=== PATIENT | female | born 2000 | race African-American/Black ===

== ENCOUNTER 2021-05-12 18:32 | Emergency (ER) | payer OTHER ==
--- NOTE | 2021-05-12 19:24 | XRAY Report ---
PROCEDURE: Tib/Fib RT INDICATIONS: metal object vs daly TECHNIQUE: 2 views of the tibia and fibula were acquired. COMPARISON: None. FINDINGS: Bones: No fractures or dislocations. No suspicious bony lesions. Soft tissues: No suspicious soft tissue calcifications or masses. No radiopaque foreign body. IMPRESSION: No acute osseous abnormality. Reviewed by: Maurizio Jon MD on 05/12/2021 7:23 PM PDT Approved by: Maurizio Jon MD on 05/12/2021 7:23 PM PDT Station ID: [id number]
[2021-05-12 19:48] VITALS: BP 145/82
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
[2021-05-12] MEDS: HYDROcod/ACETAM 5/325 MG TABLET PO STA (19:57)
== END 2021-05-12 20:18 | disposition home or self-care (01) ==
LOC: ED 18:32
DX: S80.11XA Contusion of right lower leg, initial encounter (principal); W20.8XXA Other cause of strike by thrown, projected or falling object, initial encounter; Y93.89 Activity, other specified; Y99.1 Military activity
CPT/HCPCS: 73590; 99283; A9270

== ENCOUNTER 2021-08-28 13:06 | Emergency (ER) | payer OTHER ==
[2021-08-28 13:18] VITALS: BP 160/90
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
[2021-08-28 13:43] LABS: BILIRUBIN,URINE NEGATIVE (NEGATIVE); GLUCOSE, URINE (UA) NEGATIVE (NEGATIVE); KETONES,URINE (UA) NEGATIVE (NEGATIVE); LEUKOCYTE ESTERASE, URINE NEGATIVE (NEGATIVE); NITRITE,URINE NEGATIVE (NEGATIVE); OCCULT BLOOD,URINE NEGATIVE (NEGATIVE); PROTEIN,URINE NEGATIVE (NEGATIVE); UROBILINOGEN,URINE 0.2 (NORMAL) E.U./dL (NORMAL)
[2021-08-28 13:46] LABS: CLARITY,URINE CLEAR (CLEAR); HCG UR QUAL NEGATIVE
[2021-08-28] MEDS: KETOROLAC 60 MG/2 ML VIAL IM STA (13:46)
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
--- NOTE | 2021-08-28 14:32 | CT Report ---
PROCEDURE: MAXILLOFACIAL WO INDICATIONS: ecchymosis right eye; pain with movement TECHNIQUE: Noncontrast 1.5 mm thick axial images acquired from the mandible through the frontal sinuses, with co tim and sagittal reformatting. For radiation dose reduction, the following was used: automated ex posure control, adjustment of mA and/or kV according to patient size. COMPARISON: None. FINDINGS: Image quality: Excellent. Bones and teeth: Orbital samuel are intact. Sinus samuel show no fracture or deformity. Nasal bones and septum are intact. Visualized portions of the mandible demonstrate no fractures or subluxation. Zygomatic arches are intact. Pterygoid plates are intact. Visualized portions of the skull base an d auditory canals are intact. Sinuses: Paranasal sinuses are aerated, without fluid levels, mucosal thickening, or mucoceles. Mas toid air cells are aerated. Soft tissues: Soft tissue swelling of the 4 head above the right eye. No enlarged lymph nodes. No so ft tissue lacerations or debris. Vascular: Visualized vascular structures appear normal in the absence of contrast. Bony vascular fo ramina and canals are intact. IMPRESSION: No acute abnormality of the maxillofacial bones. Reviewed by: Jesus Heart on 08/28/2021 2:31 PM PST Approved by: Jesus Heart on 08/28/2021 2:31 PM PST Station ID: [id number]
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
== END 2021-08-28 15:07 | disposition home or self-care (01) ==
LOC: ED 13:06
DX: S40.011A Contusion of right shoulder, initial encounter (principal); S00.11XA Contusion of right eyelid and periocular area, initial encounter; V89.2XXA Person injured in unspecified motor-vehicle accident, traffic, initial encounter; Y93.89 Activity, other specified; Y92.410 Unspecified street and highway as the place of occurrence of the external cause
CPT/HCPCS: 81001; 81003; 81025; 87086; 96372; 99282; 99284

== ENCOUNTER 2022-07-21 13:08 | Outpatient (CLI) | payer OTHER ==
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
[2022-07-21 13:54] VITALS: BP 130/90
== END 2022-07-21 13:09 | disposition home or self-care (01) ==
LOC: SC 13:08
PROVIDERS: ATTEND Nurse Practitioner Family
DX: R06.83 Snoring (principal); G47.8 Other sleep disorders; R53.83 Other fatigue; E66.9 Obesity, unspecified; Z68.34 Body mass index [BMI] 34.0-34.9, adult
CPT/HCPCS: 99203; 99212

== ENCOUNTER 2022-08-06 19:41 | Outpatient (CLI) | payer OTHER | END 2022-08-06 19:42 | disposition home or self-care (01) | LOC: SC 19:41 | PROVIDERS: ATTEND Nurse Practitioner Family | DX: R06.83 Snoring (principal); G47.8 Other sleep disorders; R53.83 Other fatigue | CPT/HCPCS: 95810 ==

== ENCOUNTER 2023-04-13 07:08 | Outpatient (CLI) | payer OTHER ==
--- NOTE | 2023-04-13 15:31 | Ultrasound Report ---
PROCEDURE: Arterial Visceral Complete INDICATIONS: ESSENTIAL HYPERTENSION TECHNIQUE: Real time scanning was performed of both kidneys, followed by Color and pulsed Doppler in terrogation of the renal vessels. COMPARISON: None FINDINGS: Aortic peak systolic velocity: 199 cm/s. Right side: [place]-scale imaging: Kidney is 0.1 cm long. No hydronephrosis. No nephrolithiasis. Renal cortex is normal in echogenicity. No suspicious solid renal masses. Proximal renal artery peak systolic velocity: 160 cm/s. Mid renal artery peak systolic velocity: 151 cm/s. Distal renal artery peak systolic velocity: 134 cm/s. Renal vein: Patent, without thrombus. Peak renal/aortic ratio (RAR): 0.8. Renal indices are normal. Left side: [place]-scale imaging: Kidney is 10.3 cm long. No hydronephrosis. No nephrolithiasis. Renal cortex i s normal in echogenicity. No suspicious solid renal masses. Proximal renal artery peak systolic velocity: 126 cm/s. Mid-renal artery peak systolic velocity: 131 cm/s. Distal renal artery peak systolic velocity: 125 cm/s. Renal vein: Patent, without thrombus. Peak renal/aortic ratio (RAR): 0.68. Renal indices are normal. IMPRESSION: No ultrasound evidence of renal artery stenosis. Reviewed by: Jesus Heart on 04/13/2023 3:30 PM PDT Approved by: Jesus Heart on 04/13/2023 3:30 PM PDT Station ID: [id number]
== END 2023-04-13 07:09 | disposition home or self-care (01) ==
LOC: DI 07:08
PROVIDERS: ATTEND Internal Medicine Cardiovascular Disease
DX: I10 Essential (primary) hypertension (principal)
CPT/HCPCS: 93975

== ENCOUNTER 2023-10-07 19:00 | Outpatient (CLI) | payer OTHER | END 2023-10-07 19:01 | disposition critical access hospital (66) | LOC: EMS 19:00 | DX: M54.50 Low back pain, unspecified (principal); M79.605 Pain in left leg; X58.XXXA Exposure to other specified factors, initial encounter; Y93.67 Activity, basketball; Y92.39 Other specified sports and athletic area as the place of occurrence of the external cause | CPT/HCPCS: A0425; A0429 ==

== ENCOUNTER 2023-10-07 19:21 | Emergency (ER) | payer OTHER ==
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
[2023-10-07] MEDS ORDERED: KETOROLAC 15 MG/ML VIAL IM STA (20:01)
[2023-10-07] MEDS ORDERED: CYCLOBENZAPRINE 10 MG TABLET PO STA (20:03)
[2023-10-07] MEDS ORDERED: CYCLOBENZAPRINE 10 MG Prepack 2 PO STA (20:03)
[2023-10-07 20:45] VITALS: BP 131/94; O2SAT 99
== END 2023-10-07 20:46 | disposition home or self-care (01) ==
LOC: EDUNIT# → ED 19:21
DX: M54.42 Lumbago with sciatica, left side (principal)
CPT/HCPCS: 96372; 99283; A9270

== ENCOUNTER 2024-01-20 11:40 | Emergency (ER) | payer OTHER ==
[2024-01-20 12:32] VITALS: O2SAT 100
--- NOTE | 2024-01-20 13:07 | ED Physician Documentation ---
PD HPI SKIN - Stated complaint Stated Complaint: FULL BODY RASH - Chief complaint Chief Complaint: Allergic Rx - Additional information Additional information: 23-year-old female who has a history of hypertension and did not take her antihypertensives today presented with diffuse pruritic rash on her neck torso arms for the last several days. She denies any New soaps and detergent fabric softener or other irritant contacts, has not been on any new medication including antibiotics. She states she is generally felt well though did have a mild sore throat this morning, no fever, no cough or URI symptoms, no difficulty breathing. She has not had similar issues in the past. Review of Systems Constitutional: reports: Reviewed and negative Eyes: reports: Reviewed and negative Ears: reports: Reviewed and negative Throat: reports: Sore throat Cardiac: reports: Reviewed and negative Respiratory: reports: Reviewed and negative GI: reports: Reviewed and negative : reports: Reviewed and negative Skin: reports: Rash Musculoskeletal: reports: Reviewed and negative Neurologic: reports: Reviewed and negative Psychiatric: reports: Reviewed and negative Endocrine: reports: Reviewed and negative PD PAST MEDICAL HISTORY - Past Medical History Past Medical History: Yes Cardiovascular: Hypertension Respiratory: None Neuro: None Endocrine/Autoimmune: None GI: None G[employer] ST[employer]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: 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 : None HEENT: None Psych: None Musculoskeletal: None, Other Derm: None - Past Surgical History Past Surgical History: No HEENT: Tonsil/Adenoidectomy - Present Medications Home Medications: Ambulatory Orders Medication Instructions Recorded Confirmed HYDROcod/ACETAM 5/325 [[place] 5/325] 1 - 2 ea PO Q6H PRN #9 tablet 05/12/21 10/07/23 Ibuprofen [Motrin] 800 mg PO Q8H PRN #30 tablet 05/12/21 10/07/23 Zolpidem [Ambien] 5 mg PO HS 05/12/21 10/07/23 Amitriptyline [Elavil] See Rx Instructions .ROUTE .COMPLEX 10/21/22 10/07/23 Cyclobenzaprine [Flexeril] 10 mg PO TID PRN 6 Days #15 tablet 10/07/23 hydrOXYzine pamoate [Vistaril] 25 mg PO Q6H PRN #30 cap 01/20/24 predniSONE [Deltasone] 40 mg PO DAILY 5 Days #10 tablet 01/20/24 - Allergies Allergies/Adverse Reactions: Allergies Allergy/AdvReac Type Severity Reaction Status Date / Time No Known Drug Allergies Allergy Verified 01/20/24 12:31 - Social History Does the pt smoke?: No Smoking Status: Never smoker Does the pt drink ETOH?: Yes ETOH Use: Liquor Does the pt have substance abuse?: No - Immunizations Immunizations are current?: Yes - POLST Patient has POLST: No PD ED PE NORMAL - Vitals Vital signs reviewed: Yes - General General: Alert and oriented X 3, No acute distress, Well developed/nourished - HEENT HEENT: Atraumatic, Ears normal, Moist mucous membranes, Pharynx benign - Neck Neck: Supple, no meningeal sign, No JVD - Cardiac Cardiac: RRR, No murmur, No gallop, No rub, Strong equal pulses - Respiratory Respiratory: No respiratory distress, Clear bilaterally - Abdomen Abdomen: Normal bowel sounds, Soft, Non tender, Non distended - Derm Derm: Normal color, Warm and dry, Other (Diffuse papular rash on torso, neck, arms. Nontender, no erythema.) - Neuro Neuro: Alert and oriented X 3 Eye Opening: Spontaneous Motor: Obeys Commands Verbal: Oriented GCS Score: 15 - Psych Psych: Normal mood, Normal affect Results - Vitals Vitals: Vital Signs - 24 hr 01/20/24 01/20/24 12:22 13:48 Temperature 36.0 C L 36.1 C L Heart Rate 91 83 Respiratory 20 18 Rate Blood Pressure 177/87 H 145/105 H O2 Saturation 100 100 Oxygen O2 Source Room air - Labs Labs: Laboratory Tests 01/20/24 13:17 Group A Strep Rapid Negative PD Medical Decision Making - ED course Complexity details: reviewed results, considered differential, d/w patient ED course: 23-year-old female presented with a diffuse pruritic rash on her neck, torso and arms as described in HPI. SheIs very well-appearing here, nontoxic, afebrile. She did mention a mild sore throat therefore I did consider strep in the differential with this rash however low suspicion based on her throat exam. A strep test was negative. I suspect this is a viral symptom or possibly allergy. The patient has not been started on any new medications recently and had no recent irritant contacts to her knowledge. I am going to treat with a short course of prednisone as well as hydroxyzine for the itching, patient may also take [id number] cetirizine if desired and famotidine for additional relief. Anticipate improvement over the course the next week, if worsening including fever or new concerns, return to the ER or see PCP. Departure - Departure Disposition: 01 Home, Self Care Clinical Impression: Pruritic rash Hypertension Qualifiers: Hypertension type: unspecified Qualified Code(s): I10 - Essential (primary) hypertension Condition: Good Instructions: ED Allergic Reaction General Other Prescriptions: predniSONE [Deltasone] 40 mg PO DAILY 5 Days #10 tablet hydrOXYzine pamoate [Vistaril] 25 mg PO Q6H PRN #30 cap PRN Reason: Itching Comments: Your rash is likely due to an allergic reaction. Sometimes viral illnesses can cause similar rashes. Please ensure they are not using any new soaps, lotions, laundry detergents or fabric softeners. I have given you a short course of steroids and a antiallergy/anti-itch medication. If no improvement, follow-up with your primary doctor. Your blood pressure here was also noted to be elevated. Please have this rechecked next week to ensure that it has improved. [facility] Forms: PCP List Discharge Date/Time: 01/20/24 13:48
[2024-01-20 13:31] LABS: RAPID STREP SCREEN Negative (Negative)
[2024-01-20 13:54] VITALS: BP 145/105
== END 2024-01-20 13:48 | disposition home or self-care (01) ==
LOC: ED 11:40
DX: L29.9 Pruritus, unspecified (principal); I10 Essential (primary) hypertension
CPT/HCPCS: 87070; 87430; 99283